=== PATIENT | male | born 1980 | race Caucasian/White ===

== ENCOUNTER 2021-12-04 19:08 | Emergency (ER) | payer OTHER ==
[~2021-12-04] VITALS: Ht 182.9 cm; Wt 138.8 kg
[2021-12-04 19:37] VITALS: BP 139/95
[2021-12-04 22:39] VITALS: BP 139/95
== END 2021-12-04 22:39 | disposition home or self-care (01) ==
LOC: MED 19:08
DX: S16.1XXA Strain of muscle, fascia and tendon at neck level, initial encounter (principal); S40.012A Contusion of left shoulder, initial encounter; S90.01XA Contusion of right ankle, initial encounter; V59.49XA Driver of pick-up truck or van injured in collision with other motor vehicles in traffic accident, initial encounter; Y93.89 Activity, other specified; Y92.89 Other specified places as the place of occurrence of the external cause; Y99.8 Other external cause status
CPT/HCPCS: 71045; 72040; 73030; 73610; 99284